=== PATIENT | female | born 1995 | race Caucasian/White ===

== ENCOUNTER 2020-10-16 12:49 | Emergency (ER) | payer OTHER ==
[2020-10-16] MEDS ORDERED: NORCO 5-325 TA1 EACH PO (15:55)
== END 2020-10-16 16:25 | disposition home or self-care (01) ==
LOC: FER 12:49
DX: S62.002A Unspecified fracture of navicular [scaphoid] bone of left wrist, initial encounter for closed fracture (principal); F17.210 Nicotine dependence, cigarettes, uncomplicated; W19.XXXA Unspecified fall, initial encounter; Y92.89 Other specified places as the place of occurrence of the external cause; Y99.0 Civilian activity done for income or pay
CPT/HCPCS: 73110

== ENCOUNTER 2022-05-14 16:30 | Emergency (ER) | payer OTHER ==
[~2022-05-14 16:30] MED LIST: NORCO 5-325 TA1 EACH PO
[2022-05-19] MEDS ORDERED: KEFLEX250 MG PO (21:32)
== END 2022-05-14 18:06 | disposition home or self-care (01) ==
LOC: FER 16:30
DX: O9A.213 Injury, poisoning and certain other consequences of external causes complicating pregnancy, third trimester (principal); O24.313 Unspecified pre-existing diabetes mellitus in pregnancy, third trimester; S93.402A Sprain of unspecified ligament of left ankle, initial encounter; E11.9 Type 2 diabetes mellitus without complications; Z3A.38 38 weeks gestation of pregnancy; Z79.84 Long term (current) use of oral hypoglycemic drugs
CPT/HCPCS: 73610

== ENCOUNTER 2022-05-20 19:54 | Inpatient (IN) | payer OTHER ==
[~2022-05-20] VITALS: Ht 167.6 cm; Wt 120.2 kg
[~2022-05-20 19:54] MED LIST changes: +KEFLEX250 MG PO
[2022-05-20 21:05] LABS: HCT 36.4 % (37.0-47.0); HGB 12.1 g/dl (12.5-16.0); MCH 29.2 pg (25.0-31.0); MCHC 33.2 g/dL (32.0-36.0); MCV 87.7 fL (78.0-100.0); MPV 10.6 fL (6.0-9.5); RBC 4.15 M/uL (4.20-5.40); RDW 14.2 % (11.5-14.0); WBC 14.8 K/uL (4.0-10.5)
[2022-05-20 21:13] LABS: AMPHETAMINES NEGATIVE (NEGATIVE); BARBITURATES NEGATIVE (NEGATIVE); ECSTASY (MDMA) NEGATIVE (NEGATIVE); MARIJUANA (THC) NEGATIVE (NEGATIVE); METHADONE NEGATIVE (NEGATIVE); OPIATES NEGATIVE (NEGATIVE); OXYCODONE NEGATIVE (NEGATIVE)
[2022-05-20 21:24] LABS: ALBUMIN 2.3 g/dL (3.4-5.0); BILIRUBIN - TOTAL 0.1 mg/dL (0.2-1.0); BUN/CREAT RATIO (CALC) 16.7 RATIO; CREATININE 0.66 mg/dL (0.51-0.95); GLOBULIN (CALCULATION) 4.2 g/dL; POTASSIUM 3.9 mmol/L (3.5-5.1); TOTAL PROTEIN 6.5 g/dL (6.4-8.2)
[2022-05-22 07:43] LABS: HCT 31.6 % (37.0-47.0); HGB 10.3 g/dl (12.5-16.0); MCH 29.3 pg (25.0-31.0); MCHC 32.6 g/dL (32.0-36.0); MCV 89.8 fL (78.0-100.0); MPV 9.8 fL (6.0-9.5); RBC 3.52 M/uL (4.20-5.40); RDW 14.2 % (11.5-14.0); WBC 18.7 K/uL (4.0-10.5)
[2022-05-23] MEDS ORDERED: PRENATAL FORMU1 EACH PO (14:56)
== END 2022-05-23 17:45 | disposition home or self-care (01) | DRG 788 ==
LOC: FOB 19:54
PROVIDERS: Obstetrics & Gynecology; ADMIT Specialist
PROC: 3E0P7VZ Introduction of Hormone into Female Reproductive, Via Natural or Artificial Opening (ICD-10-PCS; 2022-05-20)
PROC: 3E033VJ Introduction of Other Hormone into Peripheral Vein, Percutaneous Approach (ICD-10-PCS; 2022-05-21)
PROC: 10D00Z1 Extraction of Products of Conception, Low, Open Approach (ICD-10-PCS; principal; 2022-05-21 22:00)
DX: O13.4 Gestational [pregnancy-induced] hypertension without significant proteinuria, complicating childbirth (principal); Z37.0 Single live birth; O62.1 Secondary uterine inertia; Z3A.39 39 weeks gestation of pregnancy; Z20.822 Contact with and (suspected) exposure to COVID-19; O24.425 Gestational diabetes mellitus in childbirth, controlled by oral hypoglycemic drugs; O99.214 Obesity complicating childbirth; E66.01 Morbid (severe) obesity due to excess calories; O99.345 Other mental disorders complicating the puerperium; F53.0 Postpartum depression; O99.824 Streptococcus B carrier state complicating childbirth; Z86.16 Personal history of COVID-19; O69.81X0 Labor and delivery complicated by cord around neck, without compression, not applicable or unspecified
CPT/HCPCS: 36415; 80053; 80305; 82009; 86850; 86900; 86901; J0456; J0690; J0696; J1885; J2001; J2274; J2300; J2405; J2540; J2704; J3010; J7050; J7120; J7121; U0002